=== PATIENT | male | born 1985 | race Hispanic/Latino ===

== ENCOUNTER 2017-12-19 00:24 | Emergency (ER) | payer SELFPAY ==
[2017-12-19 01:02] VITALS: BMI 33.2
[2017-12-19] MEDS ORDERED: Sucralfate 1 gm/10 ml Oral Susp UD PO STA (01:08)
[2017-12-19 01:09] VITALS: RESP 18; TEMP 98.3
--- NOTE | 2017-12-19 01:17 | ED PDOC ---
Arrival/HPI - General Historian: Patient - History of Present Illness Narrative History of Present Illness (Text): 12/19/17 01:11 Patient is a 32 year old male with no past medical history presenting to the emergency room for intermittent upper abdominal pain for 3 days. The pain is located in epigastric region and is described as spasm, cramping pain. The pain radiates to the right and left upper quadrants. He has experienced similar pains in the past but the resolved without treatment. The pain is worse after he eats. He is not positive what foods cause his epigastic pain to worsen but reports worsening acid reflux with acidic foods, like tomato sauce with spaghetti. He has been experiencing worsening acid reflux for the past month. He has tried taking Nexium BID for a week with minimal relief. Patient is having normal bowel movements, last BM earlier today. Denies fevers, chills, nausea, vomiting, diarrhea, constipation, chest pain, shortness of breath, numbness or tingling. Time/Duration: < week (3 days ) Symptom Course: Intermittent Quality: Cramping <Zeke Shetty - Last Filed: 12/19/17 03:58> <Kimani Gautam - Last Filed: 12/19/17 04:10> - General Chief Complaint: Abdominal Pain Time Seen by Provider: 12/19/17 00:28 Past Medical History - Provider Review Nursing Documentation Reviewed: Yes - Psychiatric Hx Depression: No Hx Emotional Abuse: No Hx Physical Abuse: No Hx Substance Use: No - Suicidal Assessment Feels Threatened In Home Enviroment: No <Zeke Shetty - Last Filed: 12/19/17 03:58> Family/Social History - Physician Review Nursing Documentation Reviewed: Yes Family/Social History: No Known Family HX, Neoplasm/Cancer. denies: CVA/TIA, Hypertension, CAD/NE, Aortic/Thoracic Disection Smoking Status: Former Smoker (quit 3 years ago) Hx Alcohol Use: No Hx Substance Use: No Hx Substance Use Treatment: No <Zeke Shetty - Last Filed: 12/19/17 03:58> Allergies/Home Meds <Zeke Shetty - Last Filed: 12/19/17 03:58> <Kimani Gautam - Last Filed: 12/19/17 04:10> Allergies/Adverse Reactions: Allergies No Known Allergies Allergy (Verified 12/19/17 01:02) Home Medications: Home Meds Medication Instructions Recorded Confirmed Esomeprazole Magnesium [Nexium] 1 tab PO BID 12/19/17 12/19/17 Review of Systems - Physician Review All systems were reviewed & negative as marked: Yes - Review of Systems Constitutional: Normal. absent: Fatigue, Fevers Eyes: Normal. absent: Vision Changes ENT: Normal. absent: Sore Throat, Rhinorrhea, Epistaxis Respiratory: Normal. absent: SOB, Wheezing Cardiovascular: Normal. absent: Chest Pain, Palpitations, Edema, WOLF, Syncope Gastrointestinal: Abdominal Pain (epigastric radiating to RUQ/LUQ). absent: Constipation, Diarrhea, Nausea, Vomiting Musculoskeletal: Normal Skin: Normal Neurological: Normal. absent: Headache, Dizziness Endocrine: Normal. absent: Diaphoresis Hemo/Lymphatic: Normal. absent: Adenopathy Psychiatric: Normal. absent: Anxiety <Zeke Shetty - Last Filed: 12/19/17 03:58> Physical Exam Vital Signs Reviewed: Yes Vital Signs Temp Pulse Resp BP Pulse Ox 12/19/17 01:04 98.3 F 66 18 148/72 99 Temperature: Afebrile Blood Pressure: Normal Pulse: Regular Respiratory Rate: Normal Appearance: Positive for: Well-Appearing, Non-Toxic, Comfortable Pain Distress: None Mental Status: Positive for: Alert and Oriented X 3 - Systems Exam Head: Present: Atraumatic, Normocephalic Extroacular Muscles: Present: EOMI Conjunctiva: Present: Normal Mouth: Present: Moist Mucous Membranes Nose (External): Present: Atraumatic Nose (Internal): Present: No Active Bleeding, Moist Neck: Present: Normal Range of Motion Respiratory/Chest: Present: Clear to Auscultation, Good Air Exchange. No: Respiratory Distress, Accessory Muscle Use, Wheezes, Rales, Rhonchi, Tachypneic Cardiovascular: Present: Regular Rate and Rhythm, Normal S1, S2, Peripheal Pulses Present. No: Murmurs, Tachycardic Abdomen: Present: Tenderness (RUQ>epigastric>LUQ - non tender in lower quadrants), Normal Bowel Sounds, Guarding (voluntary, RUQ), Other (obese). No: Distention, Peritoneal Signs, Rebound, McBurney's Point Tender, Rovsing's Sign Present Back: Present: Normal Inspection. No: CVA Tenderness, Midline Tenderness, Paraspinal Tenderness Upper Extremity: Present: Normal Inspection, NORMAL PULSES. No: Cyanosis, Edema Lower Extremity: Present: Normal Inspection, NORMAL PULSES. No: Edema, CALF TENDERNESS Neurological: Present: GCS=15, Speech Normal, Motor Func Grossly Intact Skin: Present: Warm, Dry, Normal Color. No: Rashes Lymphatic: No: Cervical Adenopathy Psychiatric: Present: Alert, Oriented x 3, Normal Insight, Normal Concentration <Zeke Shetty - Last Filed: 12/19/17 03:58> Vital Signs Temp Pulse Resp BP Pulse Ox 12/19/17 01:04 98.3 F 66 18 148/72 99 <Kimani Gautam - Last Filed: 12/19/17 04:10> Medical Decision Making ED Course and Treatment: 12/19/17 01:21 Patient is a 32 year old male with no past medical history but a recent history of worsening acid reflux presenting with a complaint of intermittent epigastric pain/cramping, worse after food. Physical exam is positive for RUQ>epigastric>LUQ tenderness. Pain is currently 5 out of 10 Protonix and Carafate given Labs Will re-assess 12/19/17 02:11 Patient states he has had mild improvement but symptoms are still present. Pain is down to 3 out of 10. Still no nausea or vomiting. 12/19/17 02:33 Labs are unremarkable. Patient states that his pain has intensified again and is requesting something else for the pain. Will obtain abd/pel CT w/IV contrast. 12/19/17 03:54 Patient re-evaluated and states that he is feeling better. His pain is minimal at this time. Discussed results of CT showing enteritis. Patient will be discharged home with prescription of protonix and instructions to follow up with PMD and GI (Dr. Montalvo). Re-evaluation Time: 02:11 Reassessment Condition: Improving,but remains with symptoms - Lab Interpretations I have reviewed the lab results: Yes - RAD Interpretation Connie Cleaner: Radiologist - EKG Interpretation EKG Interpretation (Text): 12/19/17 02:23 NSR @74 bpm, normal axis, no acute ST segment elevations or depressions. - no previous ekg for comparison Interpreted by ED Physician: Yes Type: 12 lead EKG Comparison: No previous EKG avail. - Medication Orders Current Medication Orders: Pantoprazole Sodium (Protonix Inj) 40 mg IVP STAT STA Stop: 12/19/17 01:07 Sucralfate (Carafate Oral Susp) 1 gm PO STAT STA Stop: 12/19/17 01:09 <Zeke Shetty - Last Filed: 12/19/17 03:58> ED Course and Treatment: Impression: Pt seen and evaluated with biomedical engineer. Aware and agree with HPI, clinical findings, plan, and management. Pt, with no significant past medical history, presented for intermittent upper abdominal pain for the past 3 days. Plan: -- Labs, lipase -- Urinalysis -- Protonix -- Carafate -- Reassess and disposition 12/19/17 03:50 CT Abdomen and Pelvis shows: LUNG BASES: The lung bases appear clear. No pleural effusions are seen. LIVER: Unremarkable. GALLBLADDER AND BILE DUCTS: The gallbladder appears within normal limits. No radioopaque gallstones are seen. No biliary ductal dilatation is evident. PANCREAS: Unremarkable. SPLEEN: Unremarkable. ADRENAL GLANDS: Unremarkable. KIDNEYS, URETERS, AND BLADDER: The kidneys appear within normal limits. There is no hydronephrosis or hydroureter. No urinary calculi are seen. STOMACH AND BOWEL: Thick walled fluid filled duodenum and loops of jejunum compatible with enteritis. Infectious and inflammatory etiologies are considered. APPENDIX: No evidence of acute appendicitis on CT examination. PERITONEUM: No free fluid. No free air. LYMPH NODES: No lymphadenopathy is evident. REPRODUCTIVE: Unremarkable as visualized. VASCULATURE: No evidence of abdominal aortic aneurysm. BONES: No aggressive appearing osseous lesion. No acute osseous pathology evident. IMPRESSION: Enteritis. Infectious and inflammatory etiologies are considered. Electronically signed on Dec 19, 2017 3:47:31 AM EDT by: Alvaro Smith M.D., [place] Certified By ABR [employer] CBC[employer] Fellowship Trained MRI and CT Specialist - Lab Interpretations Lab Results: 12/19/17 01:35 Lab Results 12/19/17 01:35: WBC 8.9, RBC 4.30, Hgb 12.7 L, Hct 38.3 L, MCV 89.1, MCH 29.5, MCHC 33.2, RDW 14.1, Plt Count 347, MPV 10.2, Gran % 68.1 H, Lymph % (Auto) 24.8, Granite % (Auto) 6.0, Eos % (Auto) 1.0 L, Baso % (Auto) 0.1, Gran # 6.06, Lymph # (Auto) 2.2, Granite # (Auto) 0.5, Eos # (Auto) 0.1, Baso # (Auto) 0.01 - RAD Interpretation Connie Cleaner: Radiologist - Medication Orders Current Medication Orders: Discontinued Medications Pantoprazole Sodium (Protonix Inj) 40 mg IVP STAT STA Stop: 12/19/17 01:07 Last Admin: 12/19/17 01:26 Dose: 40 mg IVP Administration Document 12/19/17 01:26 OCS (Rec: 12/19/17 01:26 OCS [id number]) Charges for Administration # of IVP Administrations 1 Sucralfate (Carafate Oral Susp) 1 gm PO STAT STA Stop: 12/19/17 01:09 Last Admin: 12/19/17 01:26 Dose: 1 gm <Kimani Gautam - Last Filed: 12/19/17 04:10> - PA / [employer] / Resident Statement MICHELLE has reviewed & agrees with the documentation as recorded. MICHELLE has examined the patient and agrees with the treatment plan. <Kimani Gautam - Last Filed: 12/19/17 04:10> Disposition/Present on Arrival - Present on Arrival Any Indicators Present on Arrival: No History of DVT/PE: No History of Uncontrolled Diabetes: No Urinary Catheter: No - Disposition Have Diagnosis and Disposition been Completed?: Yes Disposition Time: 03:59 Patient Plan: Discharge <Zeke Shetty - Last Filed: 12/19/17 03:58> <Kimani Gautam - Last Filed: 12/19/17 04:10> - Disposition Diagnosis: Gastroenteritis Disposition: HOME/ ROUTINE Patient Problems: Current Active Problems Problem Status Onset Gastroenteritis Acute Condition: GOOD Discharge Instructions (ExitCare): Gastroenteritis (ED) Additional Instructions: ARTURO CARROLL, thank you for letting us take care of you today. Your provider was Kimani Gautam MD and you were treated for abdominal pain. The emergency medical care you received today was directed at your acute symptoms. If you were prescribed any medication, please fill it and take as directed. It may take several days for your symptoms to resolve. Return to the Emergency Department if your symptoms worsen, do not improve, or if you have any other problems. Please contact your doctor or call one of the physicians/clinics you have been referred to that are listed on the Patient Visit Information form that is included in your discharge packet. Bring any paperwork you were given at discharge with you along with any medications you are taking to your follow up visit. Our treatment cannot replace ongoing medical care by a primary care provider outside of the emergency department. Thank you for allowing the [facility] team to be part of your care today. If you had an X-Ray or CT scan: A Radiologist will review the ED reading if any change in treatment is needed we will contact you. If you had a blood, urine, or wound culture: It will take several days for the results, if any change in treatment is needed we will contact you. If you had an STI test: It will take 48 hours for the results. Please call after 1 week if you have not heard back. Prescriptions: Pantoprazole [Protonix] 40 mg PO DAILY #30 ect Referrals: Domonique Montalvo MD [Medical Doctor] - Follow up with primary Forms: [employer] (Japanese)
[2017-12-19 01:47] LABS: BASO # 0.01 K/mm3 (0.0-2.0); BASO % 0.1 % (0.0-3.0); EOS # 0.1 (0.0-0.7); GRAN # 6.06 (1.4-6.5); GRAN % 68.1 % (50.0-68.0); HEMOGLOBIN 12.7 g/dL (14.0-18.0); LYMPH # 2.2 (1.2-3.4); LYMPH % 24.8 % (22.0-35.0); MEAN CELL VOLUME 89.1 fl (80.0-105.0); MEAN CORPUSCULAR HEMOGLOBIN 29.5 pg (25.0-35.0); MEAN CORPUSCULAR HGB CONC 33.2 g/dl (31.0-37.0); MEAN PLATELET VOLUME 10.2 fl (7.0-11.0); MONO # 0.5 (0.1-0.6); RBC 4.3 10^6/uL (3.5-6.1); RED CELL DISTRIBUTION WIDTH 14.1 % (11.5-14.5); WHITE BLOOD COUNT 8.9 10^3/ul (4.5-11.0)
[2017-12-19 01:56] LABS: ALB/GLOB RATIO 1.2 (1.1-1.8); ALBUMIN 4.1 g/dL (3.0-4.8); ALT/SGPT 30 U/L (7-56); AST/SGOT 32 U/L (17-59); BLOOD UREA NITROGEN 11 mg/dL (7-21); CALCIUM 9.1 mg/dL (8.4-10.5); GFR NON-AFRICAN AMERICAN > 60; LIPASE 63 U/L (23-300)
[2017-12-19] MEDS ORDERED: Iohexol 350 MG/100 ML VIAL ONE (02:49)
[2017-12-19 03:26] VITALS: O2SAT 100
[2017-12-19 04:13] VITALS: BP 140/78; PULSE 68
[2017-12-19 04:15] LABS: URINE BILIRUBIN NEGATIVE (NEGATIVE); URINE BLOOD NEGATIVE (NEGATIVE); URINE GLUCOSE (UA) NEGATIVE (NEGATIVE); URINE LEUKOCYTE ESTERASE NEGATIVE Leu/uL (NEGATIVE); URINE PROTEIN NEGATIVE mg/dL (<30 mg/dL); URINE UROBILINOGEN 0.2 E.U./dL (<1 E.U./dL)
[2017-12-19 04:22] LABS: URINE APPEARANCE CLEAR (CLEAR); URINE COLOR YELLOW (YELLOW)
--- NOTE | 2017-12-19 10:23 | CT ---
Date of service: 12/19/2017 PROCEDURE: CT Abdomen and Pelvis with contrast HISTORY: upper abd pain COMPARISON: None. TECHNIQUE: Contrast dose: 100 cc of Omni 350 Radiation dose: Total exam DLP = 1080 mGy-cm. This CT exam was performed using one or more of the following dose reduction techniques: Automated exposure control, adjustment of the mA and/or kV according to patient size, and/or use of iterative reconstruction technique. FINDINGS: LOWER THORAX: Unremarkable. LIVER: Unremarkable. No gross lesion or ductal dilatation. GALLBLADDER AND BILE DUCTS: Unremarkable. PANCREAS: Unremarkable. No gross lesion or ductal dilatation. SPLEEN: Unremarkable. ADRENALS: Unremarkable. No mass. KIDNEYS AND URETERS: Unremarkable. No hydronephrosis. No solid mass. VASCULATURE: Unremarkable. No aortic aneurysm. BOWEL: Unremarkable. No obstruction. No gross mural thickening. APPENDIX: Normal appendix. PERITONEUM: Unremarkable. No free fluid. No free air. LYMPH NODES: Unremarkable. No enlarged lymph nodes. BLADDER: Unremarkable. REPRODUCTIVE: Unremarkable. BONES: No acute fracture. OTHER FINDINGS: There is a mild discrepancy with the [place] rad report. That report indicated the presence of enteritis. I believe the small bowel is within normal limits. IMPRESSION: Unremarkable contrast enhanced CT of the abdomen and pelvis.
== END 2017-12-19 04:12 | disposition home or self-care (01) ==
LOC: ED 00:24
DX: K52.9 Noninfective gastroenteritis and colitis, unspecified (principal)
CPT/HCPCS: 74177; 80053; 81003; 83690; 83735; 85025; 96374; 99284; C9113; Q9967

== ENCOUNTER 2018-05-20 07:28 | Emergency (ER) | payer SELFPAY ==
[2018-05-20 07:37] VITALS: BMI 32.8
[2018-05-20 07:45] VITALS: RESP 18; TEMP 98.4
--- NOTE | 2018-05-20 07:57 | ED PDOC ---
Arrival/HPI - General Chief Complaint: Trauma Time Seen by Provider: 05/20/18 07:43 Historian: Patient - History of Present Illness Narrative History of Present Illness (Text): 05/20/18 07:51 33 year old male, with no significant past medical history, presents to the emergency department for evaluation of head injury, sustained 5 days ago. Patient states he was at work and a metal cart hit him at the back of the head. Patient informs he has been feeling some pressure in his head and neck since then. Patient states he has been working since the injury, and only has intermittent headaches, head pressure, and pressure behind the eyes. Patient informs he has been taking Tylenol intermittently for pain. Patient denies any nausea, vomiting, or vision changes. Patient also denies any fevers, chills, chest pain, shortness of breath, cough, abdominal pain, diarrhea, back pain, or any other complaints. Time/Duration: < week (5 days) Symptom Onset: Sudden Symptom Course: Unchanged, Intermittent Quality: Pressure Activities at Onset: Significant Context: Work Past Medical History - Provider Review Nursing Documentation Reviewed: Yes - Infectious Disease Hx of Infectious Diseases: None - Psychiatric Hx Depression: No Hx Emotional Abuse: No Hx Physical Abuse: No Hx Substance Use: No - Surgical History Hx Orthopedic Surgery: Yes (Right Knee, B/l Collar Bone) - Anesthesia Hx Anesthesia Reactions: No Hx Malignant Hyperthermia: No - Suicidal Assessment Feels Threatened In Home Enviroment: No Family/Social History - Physician Review Nursing Documentation Reviewed: Yes Family/Social History: No Known Family HX Smoking Status: Former Smoker Hx Alcohol Use: No Hx Substance Use: No Hx Substance Use Treatment: No Allergies/Home Meds Allergies/Adverse Reactions: Allergies No Known Allergies Allergy (Verified 12/19/17 01:02) Home Medications: Home Meds Medication Instructions Recorded Confirmed Esomeprazole Magnesium [Nexium] 1 tab PO BID 12/19/17 12/19/17 Review of Systems - Physician Review All systems were reviewed & negative as marked: Yes - Review of Systems Constitutional: absent: Fevers, Night Sweats Eyes: Eye Pain (Slight eye pressure). absent: Vision Changes Respiratory: absent: SOB, Cough Cardiovascular: absent: Chest Pain Gastrointestinal: absent: Abdominal Pain, Diarrhea, Nausea, Vomiting Musculoskeletal: absent: Back Pain Neurological: Headache (Slight headaches intermittently) Physical Exam Vital Signs Reviewed: Yes Vital Signs Temp Pulse Resp BP Pulse Ox 05/20/18 07:29 98.4 F 84 18 122/73 98 Temperature: Afebrile Blood Pressure: Normal Pulse: Regular Respiratory Rate: Normal Appearance: Positive for: Well-Appearing, Non-Toxic, Comfortable Pain Distress: None Mental Status: Positive for: Alert and Oriented X 3 - Systems Exam Head: Present: Atraumatic, Normocephalic Pupils: Present: PERRL Extroacular Muscles: Present: EOMI Conjunctiva: Present: Normal Mouth: Present: Moist Mucous Membranes Neck: Present: Normal Range of Motion. No: MIDLINE TENDERNESS Respiratory/Chest: Present: Clear to Auscultation, Good Air Exchange. No: Respiratory Distress, Accessory Muscle Use Cardiovascular: Present: Regular Rate and Rhythm, Normal S1, S2. No: Murmurs Abdomen: No: Tenderness, Distention, Peritoneal Signs Back: Present: Normal Inspection Upper Extremity: Present: Normal Inspection. No: Cyanosis, Edema Lower Extremity: Present: Normal Inspection. No: Edema Neurological: Present: GCS=15, CN II-XII Intact, Speech Normal, Motor Func Grossly Intact, Normal Sensory Function, Gait Normal Skin: Present: Warm, Dry, Normal Color. No: Rashes Psychiatric: Present: Alert, Oriented x 3, Normal Insight, Normal Concentration Medical Decision Making ED Course and Treatment: 05/20/18 08:01 Impression: 33 year old male presents for evaluation s/p head injury. Plan: -- CT Head -- Tylenol -- Valium -- Reassess and disposition Prior Visits: Notes and results from previous visits were reviewed. Progress Notes: 05/20/18 09:06 CT HEAD Reviewed by radiologist, shows: No acute intracranial abnormalities. No significant findings to account for the clinical presentation. 05/20/18 09:[address] results with patient, who states he is feeling better after medication. Patient informs he would like to go home and will be discharged. - Scribe Statement The provider has reviewed the documentation as recorded by the Corby Underwood Provider Scribe Attestation: All medical record entries made by the Scribe were at my direction and personally dictated by me. I have reviewed the chart and agree that the record accurately reflects my personal performance of the history, physical exam, medical decision making, and the department course for this patient. I have also personally directed, reviewed, and agree with the discharge instructions and disposition. Disposition/Present on Arrival - Present on Arrival Any Indicators Present on Arrival: No History of DVT/PE: No History of Uncontrolled Diabetes: No Urinary Catheter: No History of Decub. Ulcer: No History Surgical Site Infection Following: None - Disposition Have Diagnosis and Disposition been Completed?: Yes Diagnosis: Head trauma Disposition: HOME/ ROUTINE Disposition Time: 09:12 Patient Problems: Current Active Problems Problem Status Onset Head trauma Acute Condition: GOOD Discharge Instructions (ExitCare): Concussion in Adults Additional Instructions: Follow up with your pcp and take tylenol for headache [place] [facility] [place] [facility] [place] - Follow up with primary [facility] at [facility] [Outside] - Follow up with primary [facility] at [place] [Outside] - Follow up with primary Forms: [employer] (Vietnamese)
--- NOTE | 2018-05-20 08:54 | CT ---
Date of service: 05/20/2018 PROCEDURE: CT HEAD WITHOUT CONTRAST. HISTORY: r/o bleed COMPARISON: None available. TECHNIQUE: Axial computed tomography images were obtained through the head/brain without intravenous contrast. Supplemental Coronal and Sagittal projections created and reviewed. Radiation dose: Total exam DLP = 811.52 mGy-cm. This CT exam was performed using one or more of the following dose reduction techniques: Automated exposure control, adjustment of the mA and/or kV according to patient size, and/or use of iterative reconstruction technique. FINDINGS: HEMORRHAGE: No intracranial hemorrhage. BRAIN: No mass effect or edema. No atrophy or chronic microvascular ischemic changes. VENTRICLES: Unremarkable. No hydrocephalus. CALVARIUM: Unremarkable. PARANASAL SINUSES: Unremarkable as visualized. No significant inflammatory changes. MASTOID AIR CELLS: Unremarkable as visualized. No inflammatory changes. OTHER FINDINGS: None. IMPRESSION: No acute intracranial abnormalities. No significant findings to account for the clinical presentation.
[2018-05-20 09:18] VITALS: BP 126/68; PULSE 78; O2SAT 99
== END 2018-05-20 09:32 | disposition home or self-care (01) ==
LOC: ED 07:28
DX: S09.90XA Unspecified injury of head, initial encounter (principal); W22.8XXA Striking against or struck by other objects, initial encounter; Y92.89 Other specified places as the place of occurrence of the external cause; Y99.0 Civilian activity done for income or pay